=== PATIENT | female | born 1995 | race Caucasian/White ===

== ENCOUNTER 2019-03-03 22:42 | Emergency (ER) | payer OTHER ==
[2019-03-03 22:58] VITALS: BP 137/87; PULSE 77
[2019-03-03] MEDS ORDERED: Ondansetron 4 MG/2 ML SDV IVPUSH ONE (23:24)
[2019-03-03] MEDS ORDERED: HYDROmorphone 1 MG/ML Syringe IVPUSH ONE (23:24)
[2019-03-03] MEDS ORDERED: Sodium Chloride 0.9% 1,000 ML IV SCH (23:30)
--- NOTE | 2019-03-03 23:32 | EDM.PDOC ---
ED HPI GENERAL MEDICAL PROBLEM - General Chief Complaint: Abdominal Pain Stated Complaint: LOWER ABDOMINAL PAIN Time Seen by Provider: 03/03/19 22:55 Source of Information: Reports: Patient, Significant Other (Fianc) History Limitations: Reports: No Limitations - History of Present Illness INITIAL COMMENTS - FREE TEXT/NARRATIVE: Ms. Cueto is a pleasant 23-year-old woman with a past medical history significant for untreated GERD, an ovarian cysts in the past, suspected, although not confirmed, endometriosis, and untreated anxiety/depression, who states that she developed sudden onset left lower quadrant abdominal pain that radiates across to her right lower quadrant, around 22:45 this evening. The pain waxes and wanes. It is made worse if she stands or walks, feels better if she is sitting or lying down. She had nausea and dry heaves earlier. No recent fever. No recent urinary symptoms or gross hematuria. no recent vaginal bleeding. No recent constipation or diarrhea. The patient states that she has had similar symptoms in the past, likely associated with ovarian cysts. The patient did not take any [id number] home remedies prior to coming to the ED. The patient's LMP was more than one month ago. She is not currently on control, and acknowledges that she could be . Her last oral solid food was around 18:30. The patient's PCP is Dr. Shoshana Madrigal. Her Ekg/Ecg Technician is Dr. Kayla Rowan. Her General Surgeon is Dr. Neel Eisenberg. Bilateral Lower Abdomen Pain Score (Numeric/FACES): 7 - Related Data Allergies Allergy/AdvReac Type Severity Reaction Status Date / Time No Known Allergies Allergy Verified 03/03/19 22:58 Home Meds: Home Meds . [No Known Home Meds] 03/03/19 [History] Past Medical History Gastrointestinal History: Reports: Gastritis (untreated) CDC ASSOCIATE History: Reports: Endometriosis (suspected, not confirmed), Other (See Below) (Ovarian cyst) Psychiatric History: Reports: Anxiety (untreated), Depression (untreated) Endocrine/Metabolic History: Reports: Obesity/BMI 30+ - Past Surgical History HEENT Surgical History: Reports: Oral Surgery (wisdom teeth extraction) GI Surgical History: Reports: EGD (01/14/2019) Social & Family History - Tobacco Use Smoking Status *Q: Current Some Day Smoker - Caffeine Use Caffeine Use: Reports: None - Alcohol Use Alcohol Use History: Yes Alcohol Use Frequency: Socially - Recreational Drug Use Recreational Drug Use: Yes Drug Use in Last 12 Months: No Recreational Drug Type: Reports: Cocaine (last snorted 2013), Marijuana/Hashish (last smoked 2011) - Living Situation & Occupation Living situation: Reports: Single, with Significant Other (Palak + his brother ) 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 ED EXAM, RENAL/ - Physical Exam Exam: See Below Exam Limited By: No Limitations General Appearance: Alert, WD/WN, Anxious Eye Exam: Bilateral Eye: EOMI, Normal Inspection Ears: Normal External Exam, Hearing Grossly Normal Nose: Normal Inspection Throat/Mouth: Normal Inspection, Normal Lips, Normal Voice, No Airway Compromise Head: Atraumatic, Normocephalic Neck: Normal Inspection, Full Range of Motion Respiratory/Chest: No Respiratory Distress, Lungs Clear, Normal Breath Sounds, No Accessory Muscle Use Cardiovascular: Normal Peripheral Pulses, Regular Rate, Rhythm, No Edema, No Gallop, No JVD, No Murmur, No Rub GI/Abdominal: Normal Bowel Sounds, Soft, No Organomegaly, No Distention, No Abnormal Bruit, No Mass, Tender (Considerable, to the lower abdomen, primarily suprapubically. Essentially nontender to the upper abdomen.) (Female) Exam: Deferred Rectal (Female) Exam: Deferred Back Exam: Normal Inspection, Full Range of Motion. No: CVA Tenderness (L), CVA Tenderness (R) Extremities: Normal Inspection, Normal Range of Motion, No Pedal Edema, Normal Capillary Refill Neurological: Alert, Oriented, Normal Cognition, No Motor/Sensory Deficits Psychiatric: Normal Affect Skin Exam: Warm, Dry, Intact, Normal Color, No Rash Course - Vital Signs Last Recorded V/S: Last Vital Signs Temp 36.4 C 03/03/19 22:55 Pulse 77 03/03/19 22:55 Resp 20 03/03/19 22:55 BP 137/87 03/03/19 22:55 Pulse Ox 100 03/03/19 22:55 - Orders/Labs/Meds Orders: Active Orders 24 hr Category Date Time Status Transvaginal Non OB [US] Stat Exams 03/03/19 23:24 Ordered Sodium Chloride 0.9% [Normal Saline] 1,000 ml Med 03/03/19 23:30 Active IV ASDIRECTED Medication Orders Sodium Chloride (Normal Saline) 1,000 mls @ 150 mls/hr IV ASDIRECTED DOMENICA Last Admin: 03/03/19 23:36 Dose: 150 mls/hr Labs: Laboratory Tests 03/03/19 03/03/19 03/03/19 Range/Units 23:39 23:39 23:39 WBC 12.35 H (3.98-10.04) K/mm3 RBC 5.43 H (3.98-5.22) M/mm3 Hgb 15.6 D (11.2-15.7) gm/dl Hct 45.7 H (34.1-44.9) % MCV 84.2 (79.4-94.8) fl MCH 28.7 (25.6-32.2) pg MCHC 34.1 (32.2-35.5) g/dl RDW Std Deviation 39.8 (36.4-46.3) fL Plt Count 375 H (182-369) K/mm3 MPV 10.9 (9.4-12.3) fl Neutrophils % (Manual) 57 (40-60) % Band Neutrophils % 0 (0-10) % Lymphocytes % (Manual) 35 (20-40) % Atypical Lymphs % 0 % Monocytes % (Manual) 5 (2-10) % Eosinophils % (Manual) 2 (0.7-5.8) % Basophils % (Manual) 1 (0.1-1.2) Platelet Estimate Adequate Plt Morphology Comment Normal RBC Morph Comment Normal Sodium (136-145) mEq/L Potassium (3.5-5.1) mEq/L Chloride (98-107) mEq/L Carbon Dioxide (21-32) mEq/L Anion Gap (5-15) BUN (7-18) mg/dL Creatinine (0.55-1.02) mg/dL Est Cr Clr Drug Dosing mL/min Estimated GFR (MDRD) (>60) mL/min BUN/Creatinine Ratio (14-18) Glucose (74-106) mg/dL Calcium (8.5-10.1) mg/dL Total Bilirubin (0.2-1.0) mg/dL AST (15-37) U/L ALT (14-59) U/L Alkaline Phosphatase (46-116) U/L Total Protein (6.4-8.2) g/dl Albumin (3.4-5.0) g/dl Globulin gm/dL Albumin/Globulin Ratio (1-2) Urine Color Yellow (Yellow) Urine Appearance Clear (Clear) Urine pH 6.0 (5.0-8.0) Ur Specific [place] 1.025 (1.005-1.030) Urine Protein Negative (Negative) Urine Glucose (UA) Negative (Negative) Urine Ketones Trace H (Negative) Urine Occult Blood Negative (Negative) Urine Nitrite Negative (Negative) Urine Bilirubin 1+ H (Negative) Urine Urobilinogen 1.0 (0.2-1.0) Ur Leukocyte Esterase Negative (Negative) Urine RBC Not seen (0-5) /hpf Urine WBC 0-5 (0-5) /hpf Ur Epithelial Cells 0-5 (0-5) /hpf Urine Bacteria Rare (FEW) /hpf Urine Mucus Not seen (FEW) /hpf Urine HCG, Qual Positive (NEGATIVE) 03/03/19 Range/Units 23:39 WBC (3.98-10.04) K/mm3 RBC (3.98-5.22) M/mm3 Hgb (11.2-15.7) gm/dl Hct (34.1-44.9) % MCV (79.4-94.8) fl MCH (25.6-32.2) pg MCHC (32.2-35.5) g/dl RDW Std Deviation (36.4-46.3) fL Plt Count (182-369) K/mm3 MPV (9.4-12.3) fl Neutrophils % (Manual) (40-60) % Band Neutrophils % (0-10) % Lymphocytes % (Manual) (20-40) % Atypical Lymphs % % Monocytes % (Manual) (2-10) % Eosinophils % (Manual) (0.7-5.8) % Basophils % (Manual) (0.1-1.2) Platelet Estimate Plt Morphology Comment RBC Morph Comment Sodium 139 (136-145) mEq/L Potassium 3.6 (3.5-5.1) mEq/L Chloride 104 (98-107) mEq/L Carbon Dioxide 27 (21-32) mEq/L Anion Gap 11.6 (5-15) BUN 12 (7-18) mg/dL Creatinine 0.9 (0.55-1.02) mg/dL Est Cr Clr Drug Dosing 81.11 mL/min Estimated GFR (MDRD) > 60 (>60) mL/min BUN/Creatinine Ratio 13.3 L (14-18) Glucose 98 (74-106) mg/dL Calcium 9.8 (8.5-10.1) mg/dL Total Bilirubin 0.8 (0.2-1.0) mg/dL AST 22 (15-37) U/L ALT 35 (14-59) U/L Alkaline Phosphatase 87 (46-116) U/L Total Protein 8.3 H (6.4-8.2) g/dl Albumin 4.5 (3.4-5.0) g/dl Globulin 3.8 gm/dL Albumin/Globulin Ratio 1.2 (1-2) Urine Color (Yellow) Urine Appearance (Clear) Urine pH (5.0-8.0) Ur Specific [place] (1.005-1.030) Urine Protein (Negative) Urine Glucose (UA) (Negative) Urine Ketones (Negative) Urine Occult Blood (Negative) Urine Nitrite (Negative) Urine Bilirubin (Negative) Urine Urobilinogen (0.2-1.0) Ur Leukocyte Esterase (Negative) Urine RBC (0-5) /hpf Urine WBC (0-5) /hpf Ur Epithelial Cells (0-5) /hpf Urine Bacteria (FEW) /hpf Urine Mucus (FEW) /hpf Urine HCG, Qual (NEGATIVE) Meds: Medications Generic Name Dose Route Start Last Admin Trade Name Freq PRN Reason Stop Dose Admin Sodium Chloride 1,000 mls @ 150 mls/hr 03/03/19 23:30 03/03/19 23:36 Normal Saline IV 150 mls/hr ASDIRECTED DOMENICA Administration Discontinued Medications Generic Name Dose Route Start Last Admin Trade Name Freq PRN Reason Stop Dose Admin Hydromorphone HCl 1 mg 03/03/19 23:24 03/03/19 23:37 Dilaudid IVPUSH 03/03/19 23:25 1 mg ONETIME ONE Administration Ondansetron HCl 4 mg 03/03/19 23:24 03/03/19 23:36 Zofran IVPUSH 03/03/19 23:25 4 mg ONETIME ONE Administration - Re-Assessments/Exams Free Text/Narrative Re-Assessment/Exam: 03/03/19 23:25 By both history and physical examination, the patient is most likely suffering from a left ruptured ovarian cyst, although this could be an unusual presentation of a UTI. I have ordered some blood work, urinalysis, urine test, and a transvaginal ultrasound to evaluate. In the meantime, the patient will receive IV Dilaudid, IV Zofran, and IV fluid. 03/04/19 00:24 The patient's CBC is remarkable for WBC count slightly elevated at 12.35, but with 0% bandemia. Her hematocrit is slightly elevated at 45.7, and her platelets slightly elevated at 375,000. The remainder of her CBC is unremarkable. Her CMP is unremarkable. Her urinalysis is unremarkable. Her urine test is positive. The transvaginal ultrasound has been performed, however, the report is still pending. 03/04/19 00:55 Doppler ultrasound of the adnexa is read by Susanna as "No sonographic evidence of ovarian torsion." Transvaginal pelvic ultrasound is read by Xinad as: "No acute findings." The body of the report indicates that there is a right ovarian 1.8 cm hemorrhagic cyst, multiple peripheral left ovarian follicles, and a small amount of free pelvic fluid. 03/04/19 01:07 Test results discussed with the patient and her fianc. The patient states that she now has only a small ache. I am concerned, because our workup does not explain the cause of the patient's earlier symptoms. I don't know that we have ruled out an ectopic . Case then discussed with Dr. Rowan at 01:02. Because the patient is hemodynamically stable and is now relatively comfortable, she feels the patient can safely be discharged home. She would like us to add a quantitative hCG to blood already drawn. The patient can call her office in the morning to make an appointment to follow-up. The patient can take Tylenol for discomfort, but no NSAIDs. The patient should start a vitamin with folic acid, which is available [id number]. 03/04/19 01:11 The above plan was discussed with the patient and her fianc. They are both agreeable. Departure - Departure Time of Disposition: 01:11 Disposition: Home, Self-Care 01 Condition: Good Clinical Impression: Lower abdominal pain of unknown etiology, - Discharge Information *PRESCRIPTION DRUG MONITORING PROGRAM REVIEWED*: Not Applicable *COPY OF PRESCRIPTION DRUG MONITORING REPORT IN PATIENT ROBERT: Not Applicable Referrals: Shoshana Hernandez MD [Primary Care Provider] - Kayla Rowan MD [Physician] - Neel Eisenberg MD [Physician] - Forms: ED Department Discharge Additional Instructions: You were seen in the emergency room for sudden onset lower left abdominal pain radiating to your lower right abdomen, along with nausea and dry heaves. Workup in the ER included blood work, a urinalysis, a urine test, and a transvaginal ultrasound of your pelvis. Your entire workup was unremarkable, and does not explain the cause of your pain , however, your urine test was positive. A quantitative hCG ( hormone level) was added to blood already in the lab. You may take [id number] acetaminophen (Tylenol), but you may not take any NSAIDs, such as aspirin, ibuprofen (Advil, Motrin), or naproxen (Aleve). You should purchase an [id number] vitamin that contains folic acid, and take one tablet daily. Contact the office of your Ekg/Ecg Technician, Dr. Kayla Rowan, to make an appointment to be seen. If any other problems, please do not hesitate to return to the ER. - My Orders Last 24 Hours: My Active Orders 03/03/19 23:24 Transvaginal Non OB [US] Stat 03/03/19 23:30 Sodium Chloride 0.9% [Normal Saline] 1,000 ml IV ASDIRECTED - Assessment/Plan Last 24 Hours: My Active Orders 03/03/19 23:24 Transvaginal Non OB [US] Stat 03/03/19 23:30 Sodium Chloride 0.9% [Normal Saline] 1,000 ml IV ASDIRECTED
--- NOTE | 2019-03-04 07:21 | US ---
Pelvic ultrasound: Multiple real-time images were obtained transvaginally. Comparison: Prior CT abdomen and pelvis study of 05/27/18 and pelvic ultrasound of 12/25/15. Uterus is retroverted. Endometrial thickness is normal at 1.2 cm. No myometrial abnormality is seen. Left ovary shows multiple follicles. Right ovary shows a small heterogeneous area measuring 1.7 cm most likely representing collapsing physiologic cyst. No larger cyst or solid abnormality is otherwise seen. Small amount of fluid within the pelvis is seen most likely physiologic. Measurements: Uterus: Length 8.1 cm, AP height 4.1 cm, transverse width 4.4 cm Right ovary: 3.4 x 1.4 x 2.3 cm Left ovary: 2.8 x 1.4 x 2.4 cm Impression: 1. Findings most likely physiologic as described above. 2. Pelvic ultrasound exam is otherwise unremarkable. Diagnostic code #1 I agree with preliminary report from [facility], finalized on 03/04/19, 1:53 AM Central Time
== END 2019-03-04 01:23 | disposition home or self-care (01) ==
LOC: JD.ED 22:42
DX: O26.899 Other specified pregnancy related conditions, unspecified trimester (principal); R10.32 Left lower quadrant pain; O99.330 Smoking (tobacco) complicating pregnancy, unspecified trimester; F17.200 Nicotine dependence, unspecified, uncomplicated
CPT/HCPCS: 36415; 76830; 80053; 81001; 81025; 84702; 85007; 85027; 96361; 96374; 96375; 99284; J1170; J2405; J7040

== ENCOUNTER 2019-11-16 06:47 | Inpatient (IN) | payer OTHER ==
[2019-11-16] MEDS ORDERED: Nalbuphine 10 MG/ML Syringe IVPUSH PRN (07:06)
[2019-11-16] MEDS ORDERED: Sodium Chloride 0.9% 10 ML Syringe FLUSH PRN (07:06)
[2019-11-16] MEDS ORDERED: Acetaminophen 325 MG Tab PO PRN ×2 (07:06→22:20)
[2019-11-16] MEDS ORDERED: Misoprostol 25 MCG (1/4 of 100 MCG) Tab VAG PRN (07:06)
[2019-11-16] MEDS ORDERED: Ondansetron 4 MG/2 ML SDV IVPUSH PRN ×2 (07:06→07:31)
--- NOTE | 2019-11-16 07:09 | PCM.LDHP ---
L&D History of Present Illness - General Date of Service: 11/16/19 Admit Problem/Dx: Patient Status Order with Admit Dx/Problem 11/16/19 07:06 Patient Status [ADT] Routine Admission Diagnosis/Problem Admission Diagnosis/Problem Normal in third trimester Source of Information: Patient History Limitations: Reports: No Limitations - History of Present Illness Introduction:: Patient is a 24 y/o at 40 0/7 wks who presents for IOL. Doing well today. No major concerns or complaints. No contractions - Related Data Allergies/Adverse Reactions: Allergies Allergy/AdvReac Type Severity Reaction Status Date / Time No Known Allergies Allergy Verified 11/16/19 09:06 Home Medications: Home Meds No122/Iron/Folic Acid [ Multi Tablet] 1 each PO DAILY 11/16/19 [History] Past Medical History Gastrointestinal History: Reports: GERD : 1 Para: 0 LMP (Approximate): Psychiatric History: Reports: Anxiety, Depression Endocrine/Metabolic History: Reports: Obesity/BMI 30+ - Past Surgical History HEENT Surgical History: Reports: Oral Surgery (wisdom teeth extraction) GI Surgical History: Reports: EGD (01/14/2019) Social & Family History - Tobacco Use Smoking Status *Q: Never Smoker - Caffeine Use Caffeine Use: Reports: None - Alcohol Use Alcohol Use History: No - Recreational Drug Use Recreational Drug Use: No - Living Situation & Occupation Living situation: Reports: Single, with Significant Other (Fiance + his brother ) 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) H&P Review of Systems - Review of Systems: Review Of Systems: See Below General: Reports: No Symptoms Pulmonary: Reports: No Symptoms Cardiovascular: Reports: No Symptoms Gastrointestinal: Reports: No Symptoms Genitourinary: Reports: No Symptoms Musculoskeletal: Reports: No Symptoms Psychiatric: Reports: No Symptoms Neurological: Reports: No Symptoms L&D Exam - Exam Exam: See Below - OB Specific Contraction Intensity: Irritability Movement: Active Heart Tones: Present Heart Tones per Min: 140 Heart Rate (FHR) Variability: Moderate (6-25 bmp) Presentation: Vertex - Salazar Score Salazar Score Cervix Position: Posterior Salazar Score Consistency: Soft Salazar Score Effacement: 51-70% Salazar Score Dilation: 1-2 cm Salazar Score 's Station: -2 Salazar Score Total: 6 - Exam General: Alert, Oriented, Cooperative Lungs: Clear to Auscultation, Normal Respiratory Effort Cardiovascular: Regular Rate, Regular Rhythm GI/Abdominal Exam: Soft, Non-Tender Genitourinary: Normal external exam Extremities: Normal Inspection Skin: Warm, Dry, Intact - Patient Data Result Diagrams: 11/16/19 07:20 11/16/19 07:20 - Problem List (1) 40 weeks gestation of SNOMED Code(s): 21880245 ICD Code: Z3A.40 - 40 WEEKS GESTATION OF Status: Acute Current Visit: Yes Problem List Initiated/Reviewed/Updated: Yes Orders Last 24hrs: Active Orders 24 hr Category Date Time Status Patient Status [ADT] Routine ADT 11/16/19 07:06 Ordered Communication Order [RC] ASDIRECTED Care 11/16/19 07:06 Ordered Communication Order [RC] ASDIRECTED Care 11/16/19 07:06 Ordered Communication Order [RC] ASDIRECTED Care 11/16/19 07:06 Ordered Communication Order [RC] ASDIRECTED Care 11/16/19 07:06 Ordered Heart Tones [RC] ASDIRECTED Care 11/16/19 07:07 Ordered Monitoring [RC] INTERMITTENT Care 11/16/19 07:06 Ordered Non Stress Test [RC] PER UNIT ROUTINE Care 11/16/19 07:06 Ordered Notify Provider [RC] ASDIRECTED Care 11/16/19 07:06 Ordered Notify Provider [RC] PRN Care 11/16/19 07:06 Ordered Peripheral IV Care [RC] . DIRECTED Care 11/16/19 07:07 Ordered Vaginal Exam [RC] ASDIRECTED Care 11/16/19 07:06 Ordered Vital Signs [RC] ASDIRECTED Care 11/16/19 07:06 Ordered Regular Diet [DIET] Diet 11/16/19 Breakfast Ordered CBC W/O DIFF,HEMOGRAM [HEME] Routine Lab 11/16/19 07:06 Ordered RAPID PLASMA REAGIN,RPR [CHEM] Routine Lab 11/16/19 07:06 Ordered TYPE AND SCREEN [BBK] Routine Lab 11/16/19 07:06 Ordered Acetaminophen [Tylenol] Med 11/16/19 07:06 Ordered 650 mg PO Q4H PRN Lactated Ringers [Ringers, Lactated] 1,000 ml Med 11/16/19 07:15 Ordered IV ASDIRECTED Nalbuphine [Nubain] Med 11/16/19 07:06 Ordered 10 mg IVPUSH Q2H PRN Ondansetron [Zofran] Med 11/16/19 07:06 Ordered 4 mg IVPUSH Q4H PRN Oxytocin/Lactated Ringers [Pitocin in LR 10 Units/1,000 Med 11/16/19 07:15 Ordered ML] 10 unit in 1,000 ml IV .CONTINUOUS Oxytocin/Lactated Ringers [Pitocin in LR 10 Units/1,000 Med 11/16/19 07:15 Ordered ML] 10 unit in 1,000 ml IV TITRATE Sodium Chloride 0.9% [Saline Flush] Med 11/16/19 07:06 Ordered 10 ml FLUSH ASDIRECTED PRN miSOPROStoL [Cytotec] Med 11/16/19 07:06 Ordered 25 mcg VAG Q4H PRN Electronic Heart Tones Ext w TOCO [WOMSER] Oth 11/16/19 07:06 Ordered Routine Electronic Heart Tones Internal [WOMSER] Per Unit Oth 11/16/19 07:06 Ordered Routine Peripheral IV Insertion Adult [OM.PC] Routine Oth 11/16/19 07:06 Ordered Resuscitation Status Routine Resus Stat 11/16/19 07:06 Ordered Assessment/Plan Comment:: * Labs on admission including gestational HTN labs as with some mild range BP's on initial assessment * Cytotec and hartman for IOL. Will switch to pitocin/AROM when able * GBS negative * Pain management per patient preference * Anticipate
[2019-11-16] MEDS ORDERED: Oxytocin/Lactated Ringers 10 UNIT/1,000 ML BAG IV SCH ×2 (07:15)
[2019-11-16] MEDS ORDERED: fentaNYL 100 MCG/2 ML SDV EPIDUR PRN (07:31)
[2019-11-16] MEDS ORDERED: ePHEDrine 50 MG/ML SDV IVPUSH PRN (07:31)
--- NOTE | 2019-11-16 07:35 | PCM.PREANE ---
Preanesthetic Assessment - Procedure Proposed Procedure: epidural - Anesthesia/Transfusion/Family Hx Anesthesia History: Prior Anesthesia Without Reaction Family History of Anesthesia Reaction: No Transfusion History: No Prior Transfusion(s) Intubation History: Unknown - Review of Systems General: No Symptoms Pulmonary: No Symptoms Cardiovascular: No Symptoms, Palpitations () Gastrointestinal: No Symptoms (History of gastritis/GERD), Nausea Neurological: No Symptoms, Dizziness (with off/on) Other: Reports: None, Depression, Anxiety - Physical Assessment NPO Status Date: 11/16/19 NPO Status Time: 06:00 Vital Signs: HR:90 Sat:99% B/P:128/98 Temp:36.1 Resp:16 Height: 1.6 m Weight: 85 kg ASA Class: 2 Mental Status: Alert & Oriented x3 Airway Class: Mallampati = 2 Dentition: Reports: Normal Dentition (tongue piercing noted/requested to be removed.), Caries Thyro-Mental Finger Breadths: 3 Mouth Opening Finger Breadths: 3 ROM/Head Extension: Full Lungs: Clear to Auscultation, Normal Respiratory Effort Cardiovascular: Regular Rate, Regular Rhythm, No Murmurs - Lab Values: Laboratory Last Values WBC 10.73 K/mm3 (3.98-10.04) H 11/16/19 07:20 RBC 5.02 M/mm3 (3.98-5.22) 11/16/19 07:20 Hgb 13.2 gm/dl (11.2-15.7) D 11/16/19 07:20 Hct 41.2 % (34.1-44.9) 11/16/19 07:20 MCV 82.1 fl (79.4-94.8) 11/16/19 07:20 MCH 26.3 pg (25.6-32.2) 11/16/19 07:20 MCHC 32.0 g/dl (32.2-35.5) L 11/16/19 07:20 RDW Std Deviation 43.1 fL (36.4-46.3) 11/16/19 07:20 Plt Count 236 K/mm3 (182-369) D 11/16/19 07:20 MPV 12.4 fl (9.4-12.3) H 11/16/19 07:20 Above labs reviewed and noted and within acceptable ranges to proceed with epidural if desired. 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: Endometriosis (suspected, not confirmed), Other (See Below) (Ovarian cyst) Other OB/BYN History: ruptured ovarian cyst Psychiatric History: Reports: Anxiety (untreated), Depression (untreated) Endocrine/Metabolic History: Reports: Obesity/BMI 30+ - Past Surgical History HEENT Surgical History: Reports: Oral Surgery (wisdom teeth extraction) GI Surgical History: Reports: EGD (01/14/2019) - HOME MEDS Home Medications: Home Meds No122/Iron/Folic Acid [ Multi Tablet] 1 each PO DAILY 11/16/19 [History] - CURRENT (IN HOUSE) MEDS Current Meds: Current Medications Acetaminophen (Tylenol) 650 mg PO Q4H PRN PRN Reason: Pain (Mild 1-3) and fever Ephedrine Sulfate (Ephedrine Sulfate) 5 mg IVPUSH ASDIRECTED PRN PRN Reason: Hypotension Fentanyl (Sublimaze) 100 mcg EPIDUR Q3H PRN PRN Reason: Pain Fentanyl/Bupivacaine HCl (Fentanyl/Bupivacaine/Ns 2 Mcg-0.125% 100 Ml) 100 ml EPIDUR ASDIRECTED DOMENICA Lactated Ringer's (Ringers, Lactated) 1,000 mls @ 40 mls/hr IV ASDIRECTED DOMENICA Oxytocin/Lactated Ringer's (Pitocin In Lr 10 Units/1,000 Ml) 10 unit in 1,000 mls @ 12 mls/hr IV TITRATE DOMENICA; Protocol Oxytocin/Lactated Ringer's (Pitocin In Lr 10 Units/1,000 Ml) 10 unit in 1,000 mls @ 500 mls/hr IV .CONTINUOUS DOMENICA Phenylephrine HCl 1 mg/ Sodium (Chloride) 10.1 mls @ 1 mls/sec IV TITRATE DOMENICA; Protocol Misoprostol (Cytotec) 25 mcg VAG Q4H PRN PRN Reason: cervical ripening Nalbuphine HCl (Nubain) 10 mg IVPUSH Q2H PRN PRN Reason: Pain Ondansetron HCl (Zofran) 4 mg IVPUSH Q4H PRN PRN Reason: Nausea/Vomiting Ondansetron HCl (Zofran) 4 mg IVPUSH ONETIME PRN PRN Reason: Nausea/Vomiting Sodium Chloride (Saline Flush) 10 ml FLUSH ASDIRECTED PRN PRN Reason: Keep Vein Open
[2019-11-16] MEDS ORDERED: Phenylephrine 1 MG in Sodium Chloride 0.9% 10 ML IV SCH (07:45)
[2019-11-16] MEDS: Lactated Ringers 1,000 ML IV SCH ×4 (11:46→18:33)
[2019-11-16] MEDS: Bupivacaine/fentaNYL/NS 100 ML Bag EPIDUR SCH ×2 (12:40→21:23)
--- NOTE | 2019-11-16 21:51 | PCM.DEL ---
L & D Note - General Info Date of Service: 11/16/19 - Delivery Note Labor: Induced by ARM, Induced by Oxytocin Cervical Ripening Method: Balloon Device, Misoprostil Delivery Outcome: Livebirth Infant Delivery Method: Spontaneous Vaginal Delivery-Single Delivery Mode: Vacuum Extraction Presentation: Left Occiput Anterior (SOCORRO) Nuchal Cord: None Anesthesia Type: Epidural Amniotic Fluid Description: Meconium Stained Episiotomy Type: None Laceration: 2nd Degree, Perineal Suture type: Vicryl Suture size: 2-0 Placenta: Intact, Spontaneous Cord: 3 Vessels Estimated Blood Loss: 200 Resuscitation Needed: Yes : Bulb Syringe, Stimulated, Warmed, [place] Used, Warmer Used Delivery Comments (Free Text/Narrative):: The patient was pushing in the dorsal lithotomy position. Sterile vaginal exam complete/complete/+3 station. head in SOCORRO presentation. Maternal pushing effort was good and the pelvis was felt to be adequate for an instrument assisted delivery. Patient had pushed 3 hours and become exhausted. Given this the decision was made to proceed with vacuum assisted vaginal delivery. The mushroom cup was placed without difficulty with care to avoid the vaginal side garsia - applied at 2128. Subsequent vacuum assisted vaginal delivery with pushing over 2 contractions. Total pressure applied 550 mmHg. Total pop offs: 0. Suction was removed following delivery of the head. No nuchal cord. The remainder of the infant delivered without difficulty at 2130. Infant placed on maternal abdomen. Cord clamped and cut. Cord blood obtained. Placenta allowed time to separate and expelled intact. Inspection of the perineum following delivery with 2nd degree laceration which was repaired with a 2-0 Vicryl. Vacuum Extractor Progress Note - Alternative Labor Strategies Considered Alternative Labor Strategies Considered:: Reports: Yes Strategies Considered:: Reports: Contraction Intensity Adequate, Position Changes Used to Facilitate Rotation & Descent, Empty Bladder Indications Considered:: Reports: Yes Indications:: Reports: Shortening of 2nd Stage for Maternal Benefit Time Out:: Reports: Yes - Patient Prepared Patient Prepared:: Reports: Yes Informed Consent:: Reports: Verbal Risks: Reports: Yes Risks Include:: Reports: Laceration, Shoulder Dystocia, Maternal Injury, Other Anesthesia/Analgesia Adequate:: Reports: Yes - Probability of Success High Probability of Success:: Reports: Yes Weight Estimated:: Reports: AGA Patient Diabetic:: Reports: No Pelvis Adequate:: Reports: Yes Position:: SOC[place] Asynclitic:: Reports: No Station:: +3 - Application Time Maximum Application Time & Number of Pop-Offs Predetermined:: Reports: Yes Maximum Pressure Maintained in [place] (cm Hg):: 550 Total Application Time (min): *max=20min: 3 Number of Times Cup Disengaged:: 0 Type of Vacuum Used:: Reports: Cup: Mushroom type Vacuum Extraction: Successful - Exit Strategy Exit strategy available:: Reports: Yes, No and resuscitation teams readily available:: Reports: Yes - General Info Date of Service: 11/16/19 - Patient Data Vitals - Most Recent: Last Vital Signs Temp 36.1 C 11/16/19 07:06 Pulse 98 11/16/19 07:06 Resp 16 11/16/19 07:06 BP 128/98 H 11/16/19 07:06 Pulse Ox 100 11/16/19 07:06 Weight - Most Recent: 85 kg I&O - Last 24 Hours: Intake & Output 11/16/19 11/16/19 11/16/19 06:59 14:59 22:59 Intake Total 2000 1000 Output Total 600 Balance 2000 400 Lab Results Last 24 Hours: Laboratory Results - last 24 hr 11/16/19 11/16/19 11/16/19 Range/Units 07:20 07:20 07:20 WBC 10.73 H (3.98-10.04) K/mm3 RBC 5.02 (3.98-5.22) M/mm3 Hgb 13.2 D (11.2-15.7) gm/dl Hct 41.2 (34.1-44.9) % MCV 82.1 (79.4-94.8) fl MCH 26.3 (25.6-32.2) pg MCHC 32.0 L (32.2-35.5) g/dl RDW Std Deviation 43.1 (36.4-46.3) fL Plt Count 236 D (182-369) K/mm3 MPV 12.4 H (9.4-12.3) fl Creatinine 0.9 (0.55-1.02) mg/dL Est Cr Clr Drug Dosing TNP Estimated GFR (MDRD) > 60 (>60) mL/min AST 23 (15-37) U/L ALT 22 (14-59) U/L Ur Random Creatinine (30.0-125.0) mg/dL U Random Total Protein (0.0-11.8) mg/dL Protein/Creatinin Ratio (0-149) mg/g Blood Type O POSITIVE Gel Antibody Screen Negative 11/16/19 Range/Units 09:20 WBC (3.98-10.04) K/mm3 RBC (3.98-5.22) M/mm3 Hgb (11.2-15.7) gm/dl Hct (34.1-44.9) % MCV (79.4-94.8) fl MCH (25.6-32.2) pg MCHC (32.2-35.5) g/dl RDW Std Deviation (36.4-46.3) fL Plt Count (182-369) K/mm3 MPV (9.4-12.3) fl Creatinine (0.55-1.02) mg/dL Est Cr Clr Drug Dosing Estimated GFR (MDRD) (>60) mL/min AST (15-37) U/L ALT (14-59) U/L Ur Random Creatinine 143.4 H (30.0-125.0) mg/dL U Random Total Protein 40.2 H (0.0-11.8) mg/dL Protein/Creatinin Ratio 280.3 H (0-149) mg/g Blood Type Gel Antibody Screen Med Orders - Current: Current Medications Acetaminophen (Tylenol) 650 mg PO Q4H PRN PRN Reason: Pain (Mild 1-3) and fever Ephedrine Sulfate (Ephedrine Sulfate) 5 mg IVPUSH ASDIRECTED PRN PRN Reason: Hypotension Fentanyl (Sublimaze) 100 mcg EPIDUR Q3H PRN PRN Reason: Pain Last Admin: 11/16/19 12:40 Dose: 100 mcg Fentanyl/Bupivacaine HCl (Fentanyl/Bupivacaine/Ns 2 Mcg-0.125% 100 Ml) 100 ml EPIDUR ASDIRECTED DOMENICA Last Admin: 11/16/19 21:23 Dose: 100 ml Lactated Ringer's (Ringers, Lactated) 1,000 mls @ 40 mls/hr IV ASDIRECTED DOMENICA Last Admin: 11/16/19 18:33 Dose: 40 mls/hr Oxytocin/Lactated Ringer's (Pitocin In Lr 10 Units/1,000 Ml) 10 unit in 1,000 mls @ 12 mls/hr IV TITRATE DOMENICA; Protocol Last Titration: 11/16/19 21:01 Dose: 10 munits/min, 60 mls/hr Oxytocin/Lactated Ringer's (Pitocin In Lr 10 Units/1,000 Ml) 10 unit in 1,000 mls @ 500 mls/hr IV .CONTINUOUS DOMENICA Phenylephrine HCl 1 mg/ Sodium (Chloride) 10.1 mls @ 1 mls/sec IV TITRATE DOMENICA; Protocol Nalbuphine HCl (Nubain) 10 mg IVPUSH Q2H PRN PRN Reason: Pain Ondansetron HCl (Zofran) 4 mg IVPUSH Q4H PRN PRN Reason: Nausea/Vomiting Last Admin: 11/16/19 17:56 Dose: 4 mg Ondansetron HCl (Zofran) 4 mg IVPUSH ONETIME PRN PRN Reason: Nausea/Vomiting Sodium Chloride (Saline Flush) 10 ml FLUSH ASDIRECTED PRN PRN Reason: Keep Vein Open Discontinued Medications Misoprostol (Cytotec) 25 mcg VAG Q4H PRN PRN Reason: cervical ripening Last Admin: 11/16/19 07:42 Dose: 25 mcg - Problem List & Annotations (1) 40 weeks gestation of SNOMED Code(s): 09774421 Code(s): Z3A.40 - 40 WEEKS GESTATION OF Status: Acute Current Visit: Yes (2) Meconium stained amniotic fluid, delivered, current hospitalization SNOMED Code(s): 409130160, 931550657 Code(s): O77.0 - LABOR AND DELIVERY COMPLICATED BY MECONIUM IN AMNIOTIC FLUID Status: Acute Current Visit: Yes (3) Vacuum-assisted vaginal delivery SNOMED Code(s): 63488405646849103 Code(s): Z37.9 - OUTCOME OF DELIVERY, UNSPECIFIED Status: Acute Current Visit: Yes - Problem List Review Problem List Initiated/Reviewed/Updated: Yes - My Orders Last 24 Hours: My Active Orders 11/16/19 07:06 Patient Status [ADT] Routine Communication Order [RC] ASDIRECTED Communication Order [RC] ASDIRECTED Communication Order [RC] ASDIRECTED Notify Provider [RC] ASDIRECTED Notify Provider [RC] PRN Acetaminophen [Tylenol] 650 mg PO Q4H PRN Nalbuphine [Nubain] 10 mg IVPUSH Q2H PRN Ondansetron [Zofran] 4 mg IVPUSH Q4H PRN Sodium Chloride 0.9% [Saline Flush] 10 ml FLUSH ASDIRECTED PRN Electronic Heart Tones Ext w TOCO [WOMSER] Routine Electronic Heart Tones Internal [WOMSER] Per Unit Routine Peripheral IV Insertion Adult [OM.PC] Routine Resuscitation Status Routine 11/16/19 07:07 Peripheral IV Care [RC] Q2HR 11/16/19 07:15 Lactated Ringers [Ringers, Lactated] 1,000 ml IV ASDIRECTED Oxytocin/Lactated Ringers [Pitocin in LR 10 Units/1,000 ML] 10 unit in 1,000 ml IV .CONTINUOUS Oxytocin/Lactated Ringers [Pitocin in LR 10 Units/1,000 ML] 10 unit in 1,000 ml IV TITRATE 11/16/19 07:20 RAPID PLASMA REAGIN,RPR [CHEM] Routine PIH Panel [OM.PC] Stat 11/16/19 09:09 PATIENT RETYPE [BBK] Routine 11/16/19 Breakfast Regular Diet [DIET] - Assessment Assessment:: PPD#0 - Plan Plan:: * Routine cares * Breast feeding * Discharge home in 2 days
[2019-11-16] MEDS ORDERED: Witch Hazel Medicated Pads 40/Jar TOP PRN (22:20)
[2019-11-16] MEDS ORDERED: Benzocaine/Menthol 20%-0.5% Spray 56 GM Canister TOP PRN (22:20)
[2019-11-16] MEDS: Ibuprofen 600 MG Tab PO PRN (23:23)
[2019-11-16] MEDS: Docusate Sodium 100 MG Cap PO PRN (23:23)
[2019-11-17] MEDS ORDERED: Bupivacaine 0.25% 10 ML SDV ONE
--- NOTE | 2019-11-17 07:18 | PCM48HPAN ---
Post Anesthesia Note - EVALUATION WITHIN 48HRS OF ANESTHETIC Vital Signs in Normal Range: Yes Patient Participated in Evaluation: Yes Respiratory Function Stable: Yes Airway Patent: Yes Cardiovascular Function Stable: Yes Hydration Status Stable: Yes Pain Control Satisfactory: Yes Nausea and Vomiting Control Satisfactory: Yes Mental Status Recovered: Yes Vital Signs: Last Vital Signs Temp 36.3 C 11/17/19 04:21 Pulse 60 11/17/19 04:21 Resp 15 11/17/19 04:21 BP 109/78 11/17/19 04:21 Pulse Ox 96 11/17/19 04:21 - COMMENTS/OBSERVATIONS Free Text/Narrative:: no anesthesia complications noted
--- NOTE | 2019-11-17 10:52 | PCM.PNPP ---
- General Info Date of Service: 11/17/19 Functional Status: Reports: Pain Controlled, Tolerating Diet, Ambulating, Urinating - Review of Systems General: Reports: No Symptoms Pulmonary: Reports: No Symptoms Cardiovascular: Reports: No Symptoms Gastrointestinal: Reports: No Symptoms Genitourinary: Reports: Pain (manageable ) Musculoskeletal: Reports: No Symptoms Neurological: Reports: No Symptoms - Patient Data Vital Signs - Most Recent: Last Vital Signs Temp 36.1 C 11/17/19 08:30 Pulse 55 L 11/17/19 08:30 Resp 14 11/17/19 08:30 BP 105/73 11/17/19 08:30 Pulse Ox 96 11/17/19 08:30 Weight - Most Recent: 85 kg I&O - Last 24 Hours: Intake & Output 11/16/19 11/17/19 11/17/19 22:59 06:59 14:59 Intake Total 1000 3000 120 Output Total 600 Balance 400 3000 120 Lab Results - Last 24 Hours: Laboratory Results - last 24 hr 11/16/19 Range/Units 07:20 RPR Non-reactive (NONREACTIVE) Med Orders - Current: Current Medications Acetaminophen (Tylenol) 650 mg PO Q4H PRN PRN Reason: mild pain or fever Benzocaine/Menthol (Dermoplast Pain Relief [place]) 0 gm TOP ASDIRECTED PRN PRN Reason: Perineal Comfort Measure Last Admin: 11/16/19 23:22 Dose: 1 can Docusate Sodium (Colace) 100 mg PO BID PRN PRN Reason: Constipation Last Admin: 11/16/19 23:23 Dose: 100 mg Ibuprofen (Motrin) 600 mg PO Q6H PRN PRN Reason: Mild pain or fever Last Admin: 11/16/19 23:23 Dose: 600 mg Witch Bibi (Tucks) 1 pad TOP ASDIRECTED PRN PRN Reason: Perineal Comfort Measure Last Admin: 11/16/19 23:23 Dose: 1 canister Discontinued Medications Acetaminophen (Tylenol) 650 mg PO Q4H PRN PRN Reason: Pain (Mild 1-3) and fever Bupivacaine HCl (Sensorcaine-Mpf 0.25%) 10 ml .ROUTE .STK-MED ONE Stop: 11/17/19 00:01 Ephedrine Sulfate (Ephedrine Sulfate) 5 mg IVPUSH ASDIRECTED PRN PRN Reason: Hypotension Fentanyl (Sublimaze) 100 mcg EPIDUR Q3H PRN PRN Reason: Pain Last Admin: 11/16/19 12:40 Dose: 100 mcg Fentanyl/Bupivacaine HCl (Fentanyl/Bupivacaine/Ns 2 Mcg-0.125% 100 Ml) 100 ml EPIDUR ASDIRECTED DOMENICA Last Admin: 11/16/19 21:23 Dose: 100 ml Lactated Ringer's (Ringers, Lactated) 1,000 mls @ 40 mls/hr IV ASDIRECTED DOMENICA Last Admin: 11/16/19 18:33 Dose: 40 mls/hr Oxytocin/Lactated Ringer's (Pitocin In Lr 10 Units/1,000 Ml) 10 unit in 1,000 mls @ 12 mls/hr IV TITRATE DOMENICA; Protocol Last Titration: 11/16/19 21:01 Dose: 10 munits/min, 60 mls/hr Oxytocin/Lactated Ringer's (Pitocin In Lr 10 Units/1,000 Ml) 10 unit in 1,000 mls @ 500 mls/hr IV .CONTINUOUS DOMENICA Last Admin: 11/16/19 22:09 Dose: 500 mls/hr Phenylephrine HCl 1 mg/ Sodium (Chloride) 10.1 mls @ 1 mls/sec IV TITRATE DOMENICA; Protocol Misoprostol (Cytotec) 25 mcg VAG Q4H PRN PRN Reason: cervical ripening Last Admin: 11/16/19 07:42 Dose: 25 mcg Nalbuphine HCl (Nubain) 10 mg IVPUSH Q2H PRN PRN Reason: Pain Ondansetron HCl (Zofran) 4 mg IVPUSH Q4H PRN PRN Reason: Nausea/Vomiting Last Admin: 11/16/19 17:56 Dose: 4 mg Ondansetron HCl (Zofran) 4 mg IVPUSH ONETIME PRN PRN Reason: Nausea/Vomiting Sodium Chloride (Saline Flush) 10 ml FLUSH ASDIRECTED PRN PRN Reason: Keep Vein Open - Infant Interaction Infant Disposition, : in Room with Family Infant Interaction: Holding Infant Infant Feeding: Attempted ; Nursed Fair/Poor Support Person: Significant Other - Recovery Exam Fundal Tone: Firm Fundal Level: 1 Fingerbreadths Above Umbilicus Fundal Placement: Right Lochia Amount: Small Lochia Color: Rubra/Red Perineum Description: Other (see below) Other Perinuem Description: 2nd degree laceration with repair Episiotomy/Laceration: Approximated Bladder Status: Voiding Urinary Elimination: Voided - Exam General: Alert, Oriented, Cooperative GI/Abdominal Exam: Soft, Non-Tender Extremities: Normal Inspection Skin: Warm, Dry, Intact - Problem List & Annotations (1) 40 weeks gestation of SNOMED Code(s): 09269291 Code(s): Z3A.40 - 40 WEEKS GESTATION OF Status: Acute Current Visit: Yes (2) Meconium stained amniotic fluid, delivered, current hospitalization SNOMED Code(s): 607022708, 615095262 Code(s): O77.0 - LABOR AND DELIVERY COMPLICATED BY MECONIUM IN AMNIOTIC FLUID Status: Acute Current Visit: Yes (3) Vacuum-assisted vaginal delivery SNOMED Code(s): 75568712162545108 Code(s): Z37.9 - OUTCOME OF DELIVERY, UNSPECIFIED Status: Acute Current Visit: Yes - Problem List Review Problem List Initiated/Reviewed/Updated: Yes - My Orders Last 24 Hours: My Active Orders 11/16/19 22:20 Activity as Tolerated [RC] PER UNIT ROUTINE Vital Signs [RC] 03,09,15,21 Acetaminophen [Tylenol] 650 mg PO Q4H PRN Benzocaine/Menthol [Dermoplast Pain Relief [place]] See Dose Instructions TOP ASDIRECTED PRN Docusate Sodium [Colace] 100 mg PO BID PRN Ibuprofen [Motrin] 600 mg PO Q6H PRN witch Bibi [Tucks] 1 pad TOP ASDIRECTED PRN Assess Lochia [WOMSER] Per Unit Routine Assess Uterine Involution [WOMSER] Per Unit Routine Breast Pump [WOMSER] Per Unit Routine Heat Therapy [OM.PC] PRN Ice Therapy [OM.PC] Per Unit Routine Perineal Care [OM.PC] Per Unit Routine Peripheral IV Discontinue [OM.PC] Routine Sitz Bath [OM.PC] Per Unit Routine 11/17/19 22:20 Heat Therapy [OM.PC] PRN - Assessment Assessment:: PPD#1 - Plan Plan:: * Routine cares * Breast feeding * Discharge home tomorrow
[2019-11-17] MEDS: Docusate Sodium 100 MG Cap PO PRN (20:34)
[2019-11-17] MEDS: Ibuprofen 600 MG Tab PO PRN (20:35)
--- NOTE | 2019-11-18 07:03 | PCM.DCSUM1 ---
Discharge Summary - Discharge Data Discharge Date: 11/18/19 Discharge Disposition: Home, Self-Care 01 Condition: Good - Referral to Home Health Primary Care Physician: Kayla Rowan MD - Discharge Diagnosis/Problem(s) (1) 40 weeks gestation of SNOMED Code(s): 13647756 ICD Code: Z3A.40 - 40 WEEKS GESTATION OF Status: Acute (2) Meconium stained amniotic fluid, delivered, current hospitalization SNOMED Code(s): 930149703, 155039450 ICD Code: O77.0 - LABOR AND DELIVERY COMPLICATED BY MECONIUM IN AMNIOTIC FLUID Status: Acute (3) Vacuum-assisted vaginal delivery SNOMED Code(s): 36100970045891262 ICD Code: Z37.9 - OUTCOME OF DELIVERY, UNSPECIFIED Status: Acute - Patient Summary/Data Complications: None Consults: None Recommended Follow-up Testing/Procedures: Follow up in 3 weeks for check Hospital Course: 24 y/o at 40 0/7 wks who presented for IOL. Done with hartman bulb/cytotec and also pitocin. Progressed well to complete dilation. After pushing ~3hr did become exhausted. Requested VAVD. This was done. See delivery note. did well and was discharged home on PPD#2 - Patient Instructions Diet: Regular Diet as Tolerated Activity: As Tolerated Activity, Other: Pelvic rest for 6 weeks Driving: May Drive Today Showering/Bathing: May Shower Showering/Bathing, Other: May bathe Notify Provider of: Fever, Increased Pain, Swelling and Redness, Drainage, Nausea and/or Vomiting - Discharge Plan *PRESCRIPTION DRUG MONITORING PROGRAM REVIEWED*: No *COPY OF PRESCRIPTION DRUG MONITORING REPORT IN PATIENT ROBERT: No Home Medications: Home Meds No122/Iron/Folic Acid [ Multi Tablet] 1 each PO DAILY 11/16/19 [History] Docusate Sodium [Colace] 100 mg PO BID PRN cap 11/17/19 [Rx] Ibuprofen [Motrin] 600 mg PO Q6H PRN tablet 11/17/19 [Rx] Patient Handouts: Breast Pumping Tips, and Self-Care, and Returning to Work, Care After Vaginal Delivery Referrals: Kayla Rowan MD [Primary Care Provider] - (3 weeks for check ) - Discharge Summary/Plan Comment DC Time >30 min.: No - Patient Data Vitals - Most Recent: Last Vital Signs Temp 36.5 C 11/18/19 02:56 Pulse 61 11/18/19 02:56 Resp 14 11/18/19 02:56 BP 118/79 11/18/19 02:56 Pulse Ox 97 11/18/19 02:56 Weight - Most Recent: 85 kg Med Orders - Current: Current Medications Acetaminophen (Tylenol) 650 mg PO Q4H PRN PRN Reason: mild pain or fever Benzocaine/Menthol (Dermoplast Pain Relief [place]) 0 gm TOP ASDIRECTED PRN PRN Reason: Perineal Comfort Measure Last Admin: 11/16/19 23:22 Dose: 1 can Docusate Sodium (Colace) 100 mg PO BID PRN PRN Reason: Constipation Last Admin: 11/17/19 20:34 Dose: 100 mg Ibuprofen (Motrin) 600 mg PO Q6H PRN PRN Reason: Mild pain or fever Last Admin: 11/17/19 20:35 Dose: 600 mg Witch Lara (Tucks) 1 pad TOP ASDIRECTED PRN PRN Reason: Perineal Comfort Measure Last Admin: 11/16/19 23:23 Dose: 1 canister Discontinued Medications Acetaminophen (Tylenol) 650 mg PO Q4H PRN PRN Reason: Pain (Mild 1-3) and fever Bupivacaine HCl (Sensorcaine-Mpf 0.25%) 10 ml .ROUTE .STK-MED ONE Stop: 11/17/19 00:01 Ephedrine Sulfate (Ephedrine Sulfate) 5 mg IVPUSH ASDIRECTED PRN PRN Reason: Hypotension Fentanyl (Sublimaze) 100 mcg EPIDUR Q3H PRN PRN Reason: Pain Last Admin: 11/16/19 12:40 Dose: 100 mcg Fentanyl/Bupivacaine HCl (Fentanyl/Bupivacaine/Ns 2 Mcg-0.125% 100 Ml) 100 ml EPIDUR ASDIRECTED DOMENICA Last Admin: 11/16/19 21:23 Dose: 100 ml Lactated Ringer's (Ringers, Lactated) 1,000 mls @ 40 mls/hr IV ASDIRECTED DOMENICA Last Admin: 11/16/19 18:33 Dose: 40 mls/hr Oxytocin/Lactated Ringer's (Pitocin In Lr 10 Units/1,000 Ml) 10 unit in 1,000 mls @ 12 mls/hr IV TITRATE DOMENICA; Protocol Last Titration: 11/16/19 21:01 Dose: 10 munits/min, 60 mls/hr Oxytocin/Lactated Ringer's (Pitocin In Lr 10 Units/1,000 Ml) 10 unit in 1,000 mls @ 500 mls/hr IV .CONTINUOUS DOMENICA Last Admin: 11/16/19 22:09 Dose: 500 mls/hr Phenylephrine HCl 1 mg/ Sodium (Chloride) 10.1 mls @ 1 mls/sec IV TITRATE DOMENICA; Protocol Misoprostol (Cytotec) 25 mcg VAG Q4H PRN PRN Reason: cervical ripening Last Admin: 11/16/19 07:42 Dose: 25 mcg Nalbuphine HCl (Nubain) 10 mg IVPUSH Q2H PRN PRN Reason: Pain Ondansetron HCl (Zofran) 4 mg IVPUSH Q4H PRN PRN Reason: Nausea/Vomiting Last Admin: 11/16/19 17:56 Dose: 4 mg Ondansetron HCl (Zofran) 4 mg IVPUSH ONETIME PRN PRN Reason: Nausea/Vomiting Sodium Chloride (Saline Flush) 10 ml FLUSH ASDIRECTED PRN PRN Reason: Keep Vein Open
--- NOTE | 2019-11-18 07:03 | PCM.PNPP ---
- General Info Date of Service: 11/18/19 Functional Status: Reports: Pain Controlled, Tolerating Diet, Ambulating, Urinating - Review of Systems General: Reports: No Symptoms Pulmonary: Reports: No Symptoms Cardiovascular: Reports: No Symptoms Gastrointestinal: Reports: No Symptoms Genitourinary: Reports: No Symptoms Musculoskeletal: Reports: No Symptoms Neurological: Reports: No Symptoms - General Info Date of Service: 11/18/19 - Patient Data Vital Signs - Most Recent: Last Vital Signs Temp 36.5 C 11/18/19 02:56 Pulse 61 11/18/19 02:56 Resp 14 11/18/19 02:56 BP 118/79 11/18/19 02:56 Pulse Ox 97 11/18/19 02:56 Weight - Most Recent: 85 kg Med Orders - Current: Current Medications Acetaminophen (Tylenol) 650 mg PO Q4H PRN PRN Reason: mild pain or fever Benzocaine/Menthol (Dermoplast Pain Relief [place]) 0 gm TOP ASDIRECTED PRN PRN Reason: Perineal Comfort Measure Last Admin: 11/16/19 23:22 Dose: 1 can Docusate Sodium (Colace) 100 mg PO BID PRN PRN Reason: Constipation Last Admin: 11/17/19 20:34 Dose: 100 mg Ibuprofen (Motrin) 600 mg PO Q6H PRN PRN Reason: Mild pain or fever Last Admin: 11/17/19 20:35 Dose: 600 mg Witch Lara (Tucks) 1 pad TOP ASDIRECTED PRN PRN Reason: Perineal Comfort Measure Last Admin: 11/16/19 23:23 Dose: 1 canister Discontinued Medications Acetaminophen (Tylenol) 650 mg PO Q4H PRN PRN Reason: Pain (Mild 1-3) and fever Bupivacaine HCl (Sensorcaine-Mpf 0.25%) 10 ml .ROUTE .STK-MED ONE Stop: 11/17/19 00:01 Ephedrine Sulfate (Ephedrine Sulfate) 5 mg IVPUSH ASDIRECTED PRN PRN Reason: Hypotension Fentanyl (Sublimaze) 100 mcg EPIDUR Q3H PRN PRN Reason: Pain Last Admin: 11/16/19 12:40 Dose: 100 mcg Fentanyl/Bupivacaine HCl (Fentanyl/Bupivacaine/Ns 2 Mcg-0.125% 100 Ml) 100 ml EPIDUR ASDIRECTED DOMENICA Last Admin: 11/16/19 21:23 Dose: 100 ml Lactated Ringer's (Ringers, Lactated) 1,000 mls @ 40 mls/hr IV ASDIRECTED DOMENICA Last Admin: 11/16/19 18:33 Dose: 40 mls/hr Oxytocin/Lactated Ringer's (Pitocin In Lr 10 Units/1,000 Ml) 10 unit in 1,000 mls @ 12 mls/hr IV TITRATE DOMENICA; Protocol Last Titration: 11/16/19 21:01 Dose: 10 munits/min, 60 mls/hr Oxytocin/Lactated Ringer's (Pitocin In Lr 10 Units/1,000 Ml) 10 unit in 1,000 mls @ 500 mls/hr IV .CONTINUOUS DOMENICA Last Admin: 11/16/19 22:09 Dose: 500 mls/hr Phenylephrine HCl 1 mg/ Sodium (Chloride) 10.1 mls @ 1 mls/sec IV TITRATE DOMENICA; Protocol Misoprostol (Cytotec) 25 mcg VAG Q4H PRN PRN Reason: cervical ripening Last Admin: 11/16/19 07:42 Dose: 25 mcg Nalbuphine HCl (Nubain) 10 mg IVPUSH Q2H PRN PRN Reason: Pain Ondansetron HCl (Zofran) 4 mg IVPUSH Q4H PRN PRN Reason: Nausea/Vomiting Last Admin: 11/16/19 17:56 Dose: 4 mg Ondansetron HCl (Zofran) 4 mg IVPUSH ONETIME PRN PRN Reason: Nausea/Vomiting Sodium Chloride (Saline Flush) 10 ml FLUSH ASDIRECTED PRN PRN Reason: Keep Vein Open - Infant Interaction Infant Disposition, : in Room with Family Infant Interaction: Holding Infant Feeding: Attempted ; Nursed Fair/Poor, Difficulty with Latch -on Support Person: Significant Other - Recovery Exam Fundal Tone: Firm Fundal Level: 1 Fingerbreadths Above Umbilicus Fundal Placement: Midline Lochia Amount: Small Lochia Color: Rubra/Red Perineum Description: Other (see below) Other Perinuem Description: 2nd degree laceration with repair Episiotomy/Laceration: Approximated Bladder Status: Voiding Urinary Elimination: Voided - Exam General: Alert, Oriented, Cooperative GI/Abdominal Exam: Soft, Non-Tender Extremities: Normal Inspection Skin: Warm, Dry Psy/Mental Status: Other (Tearful today ) - Problem List & Annotations (1) 40 weeks gestation of SNOMED Code(s): 61274970 Code(s): Z3A.40 - 40 WEEKS GESTATION OF Status: Acute (2) Meconium stained amniotic fluid, delivered, current hospitalization SNOMED Code(s): 394113909, 398583275 Code(s): O77.0 - LABOR AND DELIVERY COMPLICATED BY MECONIUM IN AMNIOTIC FLUID Status: Acute (3) Vacuum-assisted vaginal delivery SNOMED Code(s): 53291440247844615 Code(s): Z37.9 - OUTCOME OF DELIVERY, UNSPECIFIED Status: Acute - Problem List Review Problem List Initiated/Reviewed/Updated: Yes - My Orders Last 24 Hours: My Active Orders 11/17/19 22:20 Heat Therapy [OM.PC] PRN 11/18/19 07:03 Ready for Discharge [RC] PER UNIT ROUTINE - Assessment Assessment:: PPD#2 - Plan Plan:: * Routine cares * Breast feeding * Discharge pt today, however, baby will be staying for bilirubin therapy. Will continue to work on breast feeding
[2019-11-18 11:08] VITALS: BP 118/81; PULSE 67
== END 2019-11-18 12:55 | disposition home or self-care (01) | DRG 807 ==
LOC: JD.OB 06:47 → OBSVTOIN 21:31 → JD.OB 21:32
PROVIDERS: ADMIT Obstetrics & Gynecology; ATTEND Obstetrics & Gynecology
PROC: 10D07Z6 Extraction of Products of Conception, Vacuum, Via Natural or Artificial Opening (ICD-10-PCS; principal; 2019-11-16)
PROC: 0KQM0ZZ Repair Perineum Muscle, Open Approach (ICD-10-PCS; 2019-11-16)
PROC: 10907ZC Drainage of Amniotic Fluid, Therapeutic from Products of Conception, Via Natural or Artificial Opening (ICD-10-PCS; 2019-11-16)
PROC: 3E033VJ Introduction of Other Hormone into Peripheral Vein, Percutaneous Approach (ICD-10-PCS; 2019-11-16)
PROC: 3E0R3BZ Introduction of Anesthetic Agent into Spinal Canal, Percutaneous Approach (ICD-10-PCS; 2019-11-16)
PROC: 00HU33Z Insertion of Infusion Device into Spinal Canal, Percutaneous Approach (ICD-10-PCS; 2019-11-16)
DX: O48.0 Post-term pregnancy (principal); Z37.0 Single live birth; Z3A.40 40 weeks gestation of pregnancy; O77.0 Labor and delivery complicated by meconium in amniotic fluid; O99.214 Obesity complicating childbirth; E66.9 Obesity, unspecified; O99.62 Diseases of the digestive system complicating childbirth; K21.9 Gastro-esophageal reflux disease without esophagitis; O70.1 Second degree perineal laceration during delivery
CPT/HCPCS: 36415; 51701; 51702; 59025; 59409; 82565; 82570; 84156; 84450; 84460; 85027; 86592; 86850; 86900; 86901; A9270-GY; J2405; J2590; J3010; J3490; J7120

== ENCOUNTER 2020-03-31 22:59 | Emergency (ER) | payer OTHER ==
[2020-03-31 23:08] VITALS: BP 134/8; PULSE 61
[2020-03-31] MEDS ORDERED: HYDROmorphone 1 MG/ML Syringe IVPUSH STA (23:32)
[2020-03-31] MEDS ORDERED: Ondansetron 4 MG/2 ML SDV IVPUSH ONE (23:32)
--- NOTE | 2020-03-31 23:39 | EDM.PDOC ---
ED HPI GENERAL MEDICAL PROBLEM - General Chief Complaint: Abdominal Pain Stated Complaint: LOWER ABDOMINAL PAIN Time Seen by Provider: 03/31/20 23:12 Source of Information: Reports: Patient History Limitations: Reports: No Limitations - History of Present Illness INITIAL COMMENTS - FREE TEXT/NARRATIVE: Ms. Cueto is a very pleasant 24-year-old woman who now presents to the ED with lower abdominal pain that began around 22:40 this evening. She indicates her suprapubic region, and states that the pain waxes and wanes, going from a crampy ache to a stabbing shooting pain. It does not radiate. She has not identified any modifiers. She has had nausea, but no vomiting. No recent constipation, diarrhea, or urinary symptoms. She did not take any [id number] or home remedies prior to coming to the ED. The patient states that she has had similar symptoms many times in the past. Usually the pain is left or right of center, and due to ovarian cyst, although she did have midline pain once before and was told that she was . The patient states that she delivered about 4.5 months ago, and that she is breast- feeding. She states that she had some spotting about 1 month ago, otherwise, her LMP was prior to her . She is not using any form of control, however, therefore she states that it is possible that she could be . Here in the ED, the patient is found to be hemodynamically stable, afebrile, saturating 100% on room air. Prior to this evening, the patient denies having a recent fever, chills, sore throat, ear pain, nasal or sinus congestion, cough, dyspnea, chest pain, palpitations, nausea, vomiting, constipation, diarrhea, abdominal pain, urinary symptoms, recent weight gain or weight loss, recent bloody bowel movements or black bowel movements, recent joint aches, headaches, or rashes. The patient's PCP is Dr. Shoshana Madrigal. Her Mill Beam Fitter is Dr. Kayla Rowan. Her Surgeon is Dr. Neel Eisenberg. Lower Abdominal Pain Score (Numeric/FACES): 7 - Related Data Allergies Allergy/AdvReac Type Severity Reaction Status Date / Time No Known Allergies Allergy Verified 03/31/20 23:13 Home Meds: Home Meds No122/Iron/Folic Acid [ Multi Tablet] 1 each PO DAILY 11/16/19 [History] Docusate Sodium [Colace] 100 mg PO BID PRN cap 11/17/19 [Rx] Ibuprofen [Motrin] 600 mg PO Q6H PRN tablet 11/17/19 [Rx] Acetaminophen/HYDROcodone [[place] 325-5 MG] 1 - 2 tab PO Q6H PRN #24 tablet 04/01/20 [Rx] Ondansetron [Zofran ODT] 1 tab PO Q8H PRN #10 tab.dis 04/01/20 [Rx] Past Medical History Gastrointestinal History: Reports: GERD (untreated) [employer] HEL[employer] History: Reports: Endometriosis (suspected, not confirmed), Other (See Below) (Ovarian cysts) : 1 Para: 1 Psychiatric History: Reports: Anxiety (untreated), Depression (untreated) - Past Surgical History HEENT Surgical History: Reports: Oral Surgery (dental extractions) GI Surgical History: Reports: EGD (01/14/2019) Social & Family History - Tobacco Use Tobacco Use Status *Q: Former Tobacco User Years of Tobacco use: 1 Packs/Tins Daily: 0.2 Month/Year Tobacco Last Used: Quit 2015 - Caffeine Use Caffeine Use: Reports: Coffee, Energy Drinks, Soda, Tea - Alcohol Use Alcohol Use History: Yes Alcohol Use Frequency: Socially - Recreational Drug Use Recreational Drug Use: Yes Drug Use in Last 12 Months: No Recreational Drug Type: Reports: Marijuana/Hashish (last smoked 2015) - Living Situation & Occupation Living situation: Reports: Single, with Significant Other (Boyfriend), with Family ( child) 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 ED EXAM, GI/ABD - Physical Exam Exam: See Below Exam Limited By: No Limitations General Appearance: Alert, WD/WN, Mild Distress (Appears uncomfortable) Eyes: Bilateral: Normal Appearance, EOMI Ears: Normal External Exam, Hearing Grossly Normal Nose: Normal Inspection Throat/Mouth: Normal Inspection, Normal Lips, Normal Voice, No Airway Compromise Head: Atraumatic, Normocephalic Neck: Normal Inspection, Full Range of Motion Respiratory/Chest: No Respiratory Distress, Lungs Clear, Normal Breath Sounds, No Accessory Muscle Use Cardiovascular: Normal Peripheral Pulses, Regular Rate, Rhythm, No Edema, No Gallop, No JVD, No Murmur, No Rub GI/Abdominal Exam: Normal Bowel Sounds, Soft, No Organomegaly, No Distention, No Abnormal Bruit, No Mass, Tender (Primarily suprapubic, although some tenderness to the left and right lower quadrants. Minimal tenderness to the upper abdomen.) Back Exam: Normal Inspection, Full Range of Motion. No: CVA Tenderness (L), CVA Tenderness (R) Extremities: Normal Inspection, Normal Range of Motion, No Pedal Edema, Normal Capillary Refill Neurological: Alert, Oriented, Normal Cognition, No Motor/Sensory Deficits Psychiatric: Normal Affect Skin Exam: Warm, Dry, Intact, Normal Color, No Rash Course - Vital Signs Last Recorded V/S: Last Vital Signs Temp 36.6 C 03/31/20 23:07 Pulse 61 03/31/20 23:07 Resp 22 H 03/31/20 23:07 BP 134/8 L 03/31/20 23:07 Pulse Ox 100 03/31/20 23:07 - Orders/Labs/Meds Orders: Active Orders 24 hr Category Date Time Status Abdomen Pelvis w Cont [CT] Stat Exams 04/01/20 00:01 Taken Labs: Laboratory Tests 03/31/20 03/31/20 03/31/20 Range/Units 23:45 23:45 23:45 WBC 9.70 (3.98-10.04) K/mm3 RBC 5.18 (3.98-5.22) M/mm3 Hgb 14.5 (11.2-15.7) gm/dl Hct 44.5 (34.1-44.9) % MCV 85.9 D (79.4-94.8) fl MCH 28.0 (25.6-32.2) pg MCHC 32.6 (32.2-35.5) g/dl RDW Std Deviation 42.1 (36.4-46.3) fL Plt Count 338 D (182-369) K/mm3 MPV 10.8 (9.4-12.3) fl Neutrophils % (Manual) 50 (40-60) % Band Neutrophils % 1 (0-10) % Lymphocytes % (Manual) 29 (20-40) % Atypical Lymphs % 10 % Monocytes % (Manual) 7 (2-10) % Eosinophils % (Manual) 2 (0.7-5.8) % Basophils % (Manual) 1 (0.1-1.2) Platelet Estimate Adequate Plt Morphology Comment See note RBC Morph Comment Normal Sodium 143 (136-145) mEq/L Potassium 3.3 L (3.5-5.1) mEq/L Chloride 105 (98-107) mEq/L Carbon Dioxide 28 (21-32) mEq/L Anion Gap 13.3 (5-15) BUN 16 (7-18) mg/dL Creatinine 0.9 (0.55-1.02) mg/dL Est Cr Clr Drug Dosing 80.42 mL/min Estimated GFR (MDRD) > 60 (>60) mL/min BUN/Creatinine Ratio 17.8 (14-18) Glucose 107 H (74-106) mg/dL Calcium 9.5 (8.5-10.1) mg/dL Total Bilirubin 0.9 (0.2-1.0) mg/dL AST 16 (15-37) U/L ALT 31 (14-59) U/L Alkaline Phosphatase 114 (46-116) U/L Total Protein 7.6 (6.4-8.2) g/dl Albumin 3.9 (3.4-5.0) g/dl Globulin 3.7 gm/dL Albumin/Globulin Ratio 1.1 (1-2) HCG, Quant mIU/mL Urine Color Yellow (Yellow) Urine Appearance Clear (Clear) Urine pH 6.0 (5.0-8.0) Ur Specific [place] 1.025 (1.005-1.030) Urine Protein Negative (Negative) Urine Glucose (UA) Negative (Negative) Urine Ketones Negative (Negative) Urine Occult Blood Negative (Negative) Urine Nitrite Negative (Negative) Urine Bilirubin Negative (Negative) Urine Urobilinogen 0.2 (0.2-1.0) Ur Leukocyte Esterase Negative (Negative) Urine RBC 0-5 (0-5) /hpf Urine WBC 0-5 (0-5) /hpf Ur Squamous Epith Cells 0-5 (0-5) /hpf Urine Bacteria Few (FEW) /hpf Urine Mucus Moderate H (FEW) /hpf 03/31/20 Range/Units 23:45 WBC (3.98-10.04) K/mm3 RBC (3.98-5.22) M/mm3 Hgb (11.2-15.7) gm/dl Hct (34.1-44.9) % MCV (79.4-94.8) fl MCH (25.6-32.2) pg MCHC (32.2-35.5) g/dl RDW Std Deviation (36.4-46.3) fL Plt Count (182-369) K/mm3 MPV (9.4-12.3) fl Neutrophils % (Manual) (40-60) % Band Neutrophils % (0-10) % Lymphocytes % (Manual) (20-40) % Atypical Lymphs % % Monocytes % (Manual) (2-10) % Eosinophils % (Manual) (0.7-5.8) % Basophils % (Manual) (0.1-1.2) Platelet Estimate Plt Morphology Comment RBC Morph Comment Sodium (136-145) mEq/L Potassium (3.5-5.1) mEq/L Chloride (98-107) mEq/L Carbon Dioxide (21-32) mEq/L Anion Gap (5-15) BUN (7-18) mg/dL Creatinine (0.55-1.02) mg/dL Est Cr Clr Drug Dosing mL/min Estimated GFR (MDRD) (>60) mL/min BUN/Creatinine Ratio (14-18) Glucose (74-106) mg/dL Calcium (8.5-10.1) mg/dL Total Bilirubin (0.2-1.0) mg/dL AST (15-37) U/L ALT (14-59) U/L Alkaline Phosphatase (46-116) U/L Total Protein (6.4-8.2) g/dl Albumin (3.4-5.0) g/dl Globulin gm/dL Albumin/Globulin Ratio (1-2) HCG, Quant < 1.0 mIU/mL Urine Color (Yellow) Urine Appearance (Clear) Urine pH (5.0-8.0) Ur Specific [place] (1.005-1.030) Urine Protein (Negative) Urine Glucose (UA) (Negative) Urine Ketones (Negative) Urine Occult Blood (Negative) Urine Nitrite (Negative) Urine Bilirubin (Negative) Urine Urobilinogen (0.2-1.0) Ur Leukocyte Esterase (Negative) Urine RBC (0-5) /hpf Urine WBC (0-5) /hpf Ur Squamous Epith Cells (0-5) /hpf Urine Bacteria (FEW) /hpf Urine Mucus (FEW) /hpf Meds: Medications Discontinued Medications Generic Name Dose Route Start Last Admin Trade Name Brandon PRN Reason Stop Dose Admin Diatrizoate Meglum/Diatrizoate Sod 120 ml 04/01/20 01:22 04/01/20 01:22 Gastrografin 37% PO 04/01/20 01:23 120 ml ONETIME ONE Administration Hydromorphone HCl 1 mg 03/31/20 23:32 03/31/20 23:47 Dilaudid IVPUSH 03/31/20 23:33 1 mg ONETIME STA Administration Sodium Chloride 1,000 mls @ 150 mls/hr 03/31/20 23:45 03/31/20 23:46 Normal Saline IV 150 mls/hr ASDIRECTED DOMENICA Administration Iopamidol 100 ml 04/01/20 01:22 04/01/20 01:22 Isovue-300 (61%) IVPUSH 04/01/20 01:23 100 ml ONETIME ONE Administration Ondansetron HCl 4 mg 03/31/20 23:32 03/31/20 23:46 Zofran IVPUSH 03/31/20 23:33 4 mg ONETIME ONE Administration Sodium Chloride 10 ml 04/01/20 01:22 04/01/20 01:23 Saline Flush FLUSH 04/01/20 01:23 10 ml ONETIME ONE Administration - Re-Assessments/Exams Free Text/Narrative Re-Assessment/Exam: 03/31/20 23:33 As above, the patient developed suprapubic pain with nausea less than an hour ago. She is tender primarily in her suprapubic region, although has some tenderness to her lower abdomen and minimal tenderness elsewhere. No CVA tenderness. I have ordered a work-up that includes blood work, a urinalysis, and a CT of her abdomen and pelvis with oral and IV contrast. In the meantime, the patient will be given IV Dilaudid, IV Zofran, and IV fluid. If the patient turns out to be , we will discuss that prior to pursuing the CT scan. T he patient is aware that the Dilaudid will be make its way to her breast milk, but she wants to proceed anyway. 04/01/20 01:05 The patient's CBC is unremarkable. Her CMP is remarkable for a potassium mildly depressed at 3.3, and a blood glucose slightly elevated at 107, with the remainder of her CMP being unremarkable. Her quantitative hCG is undetectably low. Her urinalysis is unremarkable. 04/01/20 02:29 CT of the abdomen and pelvis with oral and IV contrast is read by [facility] as "Left colonic changes as above. Consider infectious or inflammatory colitis as potential etiology. Correlate clinically." The body of the report reads: Stomach and bowel: No small bowel dilation. Circumferential wall thickening with mucosal enhancement involving the descending colon and rectosigmoid . 04/01/20 02:34 As the patient does not have a fever or bloody bowel movements, infectious colitis is unlikely, and given her young age, ischemic colitis is highly unlikely. The distribution of colitis seen on the CT scan is concerning for ulcerative colitis. I will therefore discharge her home with a prescription for some [place] and Zofran, and then have her follow-up with Dr. Eisenberg for a colonoscopy; he previously performed an EGD on the patient. Departure - Departure Time of Disposition: 02:35 Disposition: Home, Self-Care 01 Condition: Good Clinical Impression: Colitis - Discharge Information *PRESCRIPTION DRUG MONITORING PROGRAM REVIEWED*: Not Applicable *COPY OF PRESCRIPTION DRUG MONITORING REPORT IN PATIENT ROBERT: Not Applicable Prescriptions: Acetaminophen/HYDROcodone [[place] 325-5 MG] 1 - 2 tab PO Q6H PRN #24 tablet PRN Reason: Pain (Severe 7-10) Ondansetron [Zofran ODT] 1 tab PO Q8H PRN #10 tab.dis PRN Reason: Nausea/Vomiting Instructions: Abdominal Pain, Adult, [id number] Referrals: Shoshana Hernandez MD [Primary Care Provider] - Kayla Rowan MD [Physician] - Neel Eisenberg MD [Physician] - Forms: ED Department Discharge Additional Instructions: You were seen in the emergency room after developing lower midline abdominal pain with nausea. Work-up in the ER included blood work, a urinalysis, and a CT of your abdomen and pelvis with oral and IV contrast. Your blood work and urinalysis were unremarkable. You do not have an elevated white blood cell count. You are not anemic. No significant electrolyte abnormalities were found. You are not . You do not have a urinary tract infection. The CT of your abdomen and pelvis found inflammation of your distal colon, concerning for ulcerative colitis. You have been provided with prescriptions for the opioid pain reliever [place] and the antinausea medicine Zofran. You may take 1 to 2 tablets of [place] up to every 6 hours, as needed for pain. If you take [place], do not drive or operate heavy machinery for 12 hours a fterwards. [place] may cause constipation, so consider taking a stool softener. Additionally, be aware that [place] will find its way into your breastmilk, which could adversely affect your baby. You may dissolve 1 tablet of Zofran on your tongue up to every 8 hours, as needed for nausea/vomiting. We recommend that you eat a bland diet and stay adequately hydrated. We recommend that you follow-up with your Surgeon, Dr. Neel Eisenberg, at the next available appointment, to arrange for an outpatient colonoscopy. If any other problems, please do not hesitate to return to the ER. Sepsis Event Note (ED) - Evaluation Sepsis Screening Result: No Definite Risk - Focused Exam Vital Signs: Vital Signs Temp Pulse Resp BP Pulse Ox 03/31/20 23:07 36.6 C 61 22 H 134/8 L 100 - My Orders Last 24 Hours: My Active Orders 04/01/20 00:01 Abdomen Pelvis w Cont [CT] Stat - Assessment/Plan Last 24 Hours: My Active Orders 04/01/20 00:01 Abdomen Pelvis w Cont [CT] Stat
[2020-03-31] MEDS ORDERED: Sodium Chloride 0.9% 1,000 ML IV SCH (23:45)
[2020-04-01] MEDS ORDERED: Diatrizoate Meglumine/Diatrizoate Sodium 37% 120 ML Bottle PO ONE (01:22)
[2020-04-01] MEDS ORDERED: Iopamidol 612 MG/ML 100 ML Bottle IVPUSH ONE (01:22)
[2020-04-01] MEDS ORDERED: Sodium Chloride 0.9% 10 ML Syringe FLUSH ONE (01:22)
== END 2020-04-01 02:50 | disposition home or self-care (01) ==
LOC: JD.ED 22:59
DX: K52.9 Noninfective gastroenteritis and colitis, unspecified (principal); Z87.891 Personal history of nicotine dependence
CPT/HCPCS: 36415; 74177; 80053; 81001; 84702; 85007; 85027; 96374; 96375; 99284; J1170; J2405; J7030; Q9963; Q9967

== ENCOUNTER 2021-10-07 15:31 | Emergency (ER) | payer OTHER ==
[2021-10-07 15:43] VITALS: BP 136/86; PULSE 90
[2021-10-07] MEDS ORDERED: Ondansetron 4 MG/2 ML SDV IVPUSH ONE (16:13)
[2021-10-07] MEDS ORDERED: Acetaminophen 325 MG Tab PO ONE (16:13)
[2021-10-07] MEDS ORDERED: Sodium Chloride 0.9% 1,000 ML IV ONE (16:14)
[2021-10-07] MEDS: Sodium Chloride 0.9% 10 ML Syringe FLUSH PRN ×2 (16:43→19:24)
[2021-10-07] MEDS ORDERED: Iopamidol 612 MG/ML 100 ML Bottle IVPUSH ONE (19:16)
== END 2021-10-07 21:41 | disposition home or self-care (01) ==
LOC: JD.ED 15:31
DX: O99.891 Other specified diseases and conditions complicating pregnancy (principal); R10.31 Right lower quadrant pain; N83.11 Corpus luteum cyst of right ovary; E66.9 Obesity, unspecified; Z68.29 Body mass index [BMI] 29.0-29.9, adult; Z79.899 Other long term (current) drug therapy; Z3A.01 Less than 8 weeks gestation of pregnancy
CPT/HCPCS: 36415; 74177; 76705; 76817; 80053; 81001; 81025; 84702; 85025; 86140; 96374; 99284; A9270; J2405; J3490; J7030; Q9967

== ENCOUNTER 2022-05-23 20:20 | Inpatient (IN) | payer OTHER ==
[2022-05-23] MEDS ORDERED: Acetaminophen 325 MG Tab PO PRN (20:51)
[2022-05-23] MEDS ORDERED: Ondansetron 4 MG/2 ML SDV IVPUSH PRN (20:51)
[2022-05-23] MEDS ORDERED: Sodium Chloride 0.9% 10 ML Syringe FLUSH PRN (20:51)
[2022-05-23] MEDS ORDERED: Calcium Carbonate 500 MG Tab.Chew PO PRN (20:51)
[2022-05-23] MEDS ORDERED: Nalbuphine 10 MG/0.5 ML Syringe IVPUSH PRN (20:51)
[2022-05-23] MEDS ORDERED: Oxytocin/Lactated Ringers 10 UNIT/1,000 ML BAG IV SCH ×2 (21:00)
[2022-05-23] MEDS ORDERED: Sodium Chloride 0.9% 10 ML Syringe FLUSH SCH (21:00)
[2022-05-23] MEDS: Lactated Ringers 1,000 ML IV SCH ×2 (21:33→22:17)
[2022-05-23] MEDS ORDERED: ePHEDrine 50 MG/ML SDV IVPUSH PRN (21:49)
[2022-05-23] MEDS ORDERED: Bupivacaine/fentaNYL/NS 100 ML Bag EPIDUR PRN (21:49)
[2022-05-23] MEDS ORDERED: fentaNYL 100 MCG/2 ML SDV EPIDUR PRN (21:49)
[2022-05-23] MEDS ORDERED: diphenhydrAMINE 50 MG/ML SDV IVPUSH PRN (21:49)
[2022-05-23] MEDS ORDERED: fentaNYL 100 MCG/2 ML SDV ONE (21:59)
[2022-05-24] MEDS ORDERED: Lidocaine 1% 10 ML MDV ONE
[2022-05-24] MEDS ORDERED: Oxytocin/Lactated Ringers 10 UNIT/1,000 ML BAG IV SCH (02:00)
[2022-05-24] MEDS ORDERED: Acetaminophen 325 MG Tab PO PRN (05:12)
[2022-05-24] MEDS ORDERED: Docusate Sodium 100 MG Cap PO PRN (05:12)
[2022-05-24] MEDS ORDERED: Benzocaine/Menthol 20%-0.5% Spray 78 GM Cannister TOP PRN (05:12)
[2022-05-24] MEDS ORDERED: Witch Hazel Medicated Pads 40/Jar TOP PRN (05:12)
[2022-05-24] MEDS: Ibuprofen 600 MG Tab PO PRN ×2 (09:36→15:33)
[2022-05-25] MEDS: Ibuprofen 600 MG Tab PO PRN (00:57)
[2022-05-25 11:09] VITALS: BP 106/67; PULSE 83
== END 2022-05-25 12:12 | disposition home or self-care (01) | DRG 807 ==
LOC: JD.OBCHECK 20:20 → JD.OB 20:23 → JD.OBCHECK 23:36 → JD.OB 23:37 → OBSVTOIN 05-24 04:04 → JD.OB 05-24 04:05
PROVIDERS: ADMIT Obstetrics & Gynecology; ATTEND Obstetrics & Gynecology
PROC: 10E0XZZ Delivery of Products of Conception, External Approach (ICD-10-PCS; principal; 2022-05-24)
PROC: 0KQM0ZZ Repair Perineum Muscle, Open Approach (ICD-10-PCS; 2022-05-24)
PROC: 3E0R3BZ Introduction of Anesthetic Agent into Spinal Canal, Percutaneous Approach (ICD-10-PCS; 2022-05-24)
PROC: 00HU33Z Insertion of Infusion Device into Spinal Canal, Percutaneous Approach (ICD-10-PCS; 2022-05-24)
DX: O99.344 Other mental disorders complicating childbirth (principal); Z37.0 Single live birth; O99.62 Diseases of the digestive system complicating childbirth; O99.214 Obesity complicating childbirth; O70.1 Second degree perineal laceration during delivery; Z3A.39 39 weeks gestation of pregnancy; O69.1XX0 Labor and delivery complicated by cord around neck, with compression, not applicable or unspecified; K21.9 Gastro-esophageal reflux disease without esophagitis; F41.9 Anxiety disorder, unspecified; F32.A Depression, unspecified
CPT/HCPCS: 01967; 36415; 51702; 59025; 59409; 85025; 86592; 86850; 86900; 86901; A9270-GY; J2590; J3010; J7120

== ENCOUNTER 2023-07-27 21:10 | Emergency (ER) | payer BC ==
[2023-07-27 21:20] VITALS: PULSE 86
[2023-07-27 21:36] LABS: BASOPHILS ABSOLUTE AUTO 0.1 K/mm3 (0.0-0.2); BASOPHILS PERCENT AUTO 0.7 % (0.0-1.0); EOSINOPHILS ABSOLUTE AUTO 0.1 K/mm3 (0.0-0.4); EOSINOPHILS PERCENT AUTO 1.1 % (0.0-6.0); HEMATOCRIT 41.5 % (37.0-47.0); HEMOGLOBIN 13.9 gm/dl (12.0-16.0); IMMATURE GRAN ABSOLUTE AUTO 0.03 K/mm3 (0.00-0.05); IMMATURE GRAN PERCENT AUTO 0.3 % (0.0-0.4); LYMPHOCYTES ABSOLUTE AUTO 2.3 K/mm3 (1.0-4.8); LYMPHOCYTES PERCENT AUTO 23.2 % (24.0-44.0); MEAN CORPUSCULAR HEMOGLOBIN 29.1 pg (28.0-32.0); MEAN CORPUSCULAR HGB CONC 33.5 g/dl (32.0-36.0); MEAN CORPUSCULAR VOLUME 86.8 fl (83.0-99.0); MEAN PLATELET VOLUME 9.6 fl (9.4-12.3); MONOCYTES ABSOLUTE AUTO 0.8 K/mm3 (0.0-0.8); MONOCYTES PERCENT AUTO 8.1 % (0.0-8.0); NEUTROPHILS ABSOLUTE AUTO 6.5 K/mm3 (1.8-7.7); NEUTROPHILS PERCENT AUTO 66.6 % (41.0-71.0); PLATELET COUNT,PLT 339 K/mm3 (150-400); RED BLOOD CELL COUNT 4.78 M/mm3 (4.10-5.30); WHITE BLOOD CELL COUNT,WBC 9.77 K/mm3 (3.9-11.3)
[2023-07-27] MEDS: Ketorolac 30 MG/ML SDV IM ONE (21:38)
[2023-07-27 21:51] LABS: APPEARANCE,URINE CLEAR (Clear); BILIRUBIN,URINE NEGATIVE (Negative); COLOR,URINE YELLOW (Yellow); GLUCOSE,URINE NEGATIVE (Negative); KETONES,URINE NEGATIVE (Negative); LEUKOCYTE ESTERASE,URINE TRACE (Negative); NITRITE,URINE NEGATIVE (Negative); OCCULT BLOOD,URINE NEGATIVE (Negative); PROTEIN,URINE NEGATIVE (Negative); UROBILINOGEN,URINE 0.2 (0.2-1.0)
[2023-07-27 22:01] LABS: A/G RATIO 0.8 (1-2); ALBUMIN 3.3 g/dl (3.4-5.0); ANION GAP 12.9 (5-15); BILIRUBIN TOTAL 0.3 mg/dL (0.2-1.0); C-REACTIVE PROTEIN 0.7 mg/dL (<1.0); CALCIUM 8.5 mg/dL (8.5-10.1); EST CRCL DRUG DOSING (CG) 69.9 mL/min; POTASSIUM,K 3.9 mEq/L (3.5-5.1); PROTEIN TOTAL,TP 7.3 g/dl (6.4-8.2)
[2023-07-27 22:06] LABS: BACTERIA,URINE MODERATE /hpf (FEW); MUCUS,URINE FEW /hpf (FEW); RBC,URINE 0-5 /hpf (0-5)
[2023-07-28 00:14] VITALS: BP 122/81
== END 2023-07-27 23:00 | disposition home or self-care (01) ==
LOC: JD.ED 21:10
DX: R10.32 Left lower quadrant pain (principal); E66.9 Obesity, unspecified; Z68.32 Body mass index [BMI] 32.0-32.9, adult
CPT/HCPCS: 36415; 76830; 80053; 81001; 84703; 85025; 86140; 87086; 96372; 99284; J1885

== ENCOUNTER 2024-06-09 16:47 | Emergency (ER) | payer BC ==
[2024-06-09] MEDS ORDERED: Ondansetron 4 MG/2 ML SDV IVPUSH ONE (17:20)
[2024-06-09] MEDS ORDERED: Sodium Chloride 0.9% 10 ML Syringe FLUSH ONE (17:23)
[2024-06-09] MEDS ORDERED: Iopamidol 612 MG/ML 100 ML Bottle IVPUSH ONE (17:23)
[2024-06-09] MEDS: Magnesium Hydroxide 400 MG/5 ML Susp 30 ML Cup PO ONE (18:10)
[2024-06-09] MEDS: Acetaminophen/oxyCODONE 325-5 MG Tab PO ONE (18:10)
[2024-06-09] MEDS: Sodium Chloride 0.9% 1,000 ML IV ONE (18:11)
[2024-06-09 18:55] VITALS: BP 116/79; PULSE 87
== END 2024-06-09 18:15 | disposition home or self-care (01) ==
LOC: JD.ED 16:47
DX: K64.4 Residual hemorrhoidal skin tags (principal); K60.2 Anal fissure, unspecified; K21.9 Gastro-esophageal reflux disease without esophagitis; E66.9 Obesity, unspecified; Z79.899 Other long term (current) drug therapy
CPT/HCPCS: 99283; A9270

== ENCOUNTER 2024-08-21 21:50 | Emergency (ER) | payer BC ==
[2024-08-21 22:09] VITALS: BP 127/85; PULSE 86
== END 2024-08-21 23:45 | disposition home or self-care (01) ==
LOC: JD.ED 21:50
DX: K64.4 Residual hemorrhoidal skin tags (principal); K60.2 Anal fissure, unspecified; K59.00 Constipation, unspecified; K21.9 Gastro-esophageal reflux disease without esophagitis; E66.9 Obesity, unspecified; Z79.899 Other long term (current) drug therapy; Z68.31 Body mass index [BMI] 31.0-31.9, adult
CPT/HCPCS: 74018; 74018-26; 99283; 99284

== ENCOUNTER 2024-12-19 10:31 | Emergency (ER) | payer BC ==
[2024-12-19] MEDS: Ondansetron 4 MG/2 ML SDV IVPUSH ONE (11:17)
[2024-12-19] MEDS: Ketorolac 30 MG/ML SDV IVPUSH ONE (11:17)
[2024-12-19 11:49] LABS: BASOPHILS ABSOLUTE AUTO 0.1 K/mm3 (0.0-0.2); BASOPHILS PERCENT AUTO 1.0 % (0.0-1.0); EOSINOPHILS ABSOLUTE AUTO 0.2 K/mm3 (0.0-0.4); EOSINOPHILS PERCENT AUTO 2.7 % (0.0-6.0); IMMATURE GRAN ABSOLUTE AUTO 0.04 K/mm3 (0.00-0.05); IMMATURE GRAN PERCENT AUTO 0.5 % (0.0-0.4); LYMPHOCYTES ABSOLUTE AUTO 2.3 K/mm3 (1.0-4.8); LYMPHOCYTES PERCENT AUTO 29.2 % (24.0-44.0); MEAN PLATELET VOLUME 10.4 fl (9.4-12.3); MONOCYTES ABSOLUTE AUTO 0.6 K/mm3 (0.0-0.8); MONOCYTES PERCENT AUTO 7.3 % (0.0-8.0); NEUTROPHILS ABSOLUTE AUTO 4.7 K/mm3 (1.8-7.7); NEUTROPHILS PERCENT AUTO 59.3 % (41.0-71.0); NRBC ABSOLUTE 0.00 (0.00-0.02); NRBC PERCENT 0.0 % (0.0-0.2); PLATELET COUNT,PLT 390 K/mm3 (150-400); RED BLOOD CELL COUNT 5.18 M/mm3 (4.10-5.30); WHITE BLOOD CELL COUNT,WBC 7.91 K/mm3 (3.9-11.3)
[2024-12-19 11:59] LABS: A/G RATIO 0.9 (1-2); ALANINE AMINOTRANSFERASE,ALT 27.0 U/L (14-59); ASPARTATE AMNIOTRANSFERASE,AST 17.0 U/L (15-37); BILIRUBIN TOTAL 0.3 mg/dL (0.2-1.0); BLOOD UREA NITROGEN,BUN 11.0 mg/dL (7-18); CARBON DIOXIDE,CO2 28.0 mEq/L (21-32); CHLORIDE,CL 104.0 mEq/L (98-107); CREATINE KINASE,CK 60.0 U/L (26-192); CREATININE 0.8 mg/dL (0.55-1.02); EST CRCL DRUG DOSING (CG) 86.6 mL/min; ESTIMATED GFR 103.0 mL/min (>60); GLUCOSE RANDOM 104.0 mg/dL (70-99); POTASSIUM,K 4.0 mEq/L (3.5-5.1); PROTEIN TOTAL,TP 7.4 g/dl (6.4-8.2); SODIUM,NA 137.0 mEq/L (136-145)
[2024-12-19 13:50] LABS: APPEARANCE,URINE CLEAR (Clear); GLUCOSE,URINE NEGATIVE (Negative); OCCULT BLOOD,URINE NEGATIVE (Negative)
[2024-12-19 13:57] LABS: BUPRENORPHINE SCREEN,URINE NEGATIVE (CUTOFF=10); METHADONE SCREEN, URINE NEGATIVE (CUTOFF=200); METHAMPHETAMINES SCREEN, URINE NEGATIVE (CUTOFF=500); OXYCODONE SCREEN,URINE NEGATIVE (CUT0FF=100); THC SCREEN,URINE 20 NG/ML NEGATIVE (CUTOFF=50)
[2024-12-19 14:00] LABS: AMPHETAMINES SCREEN, URINE PRESUMPTIVE POSITIVE (CUTOFF=500)
[2024-12-19 14:04] VITALS: BP 113/78; PULSE 87
== END 2024-12-19 13:57 | disposition home or self-care (01) ==
LOC: JD.ED 10:31
DX: G43.909 Migraine, unspecified, not intractable, without status migrainosus (principal); K21.9 Gastro-esophageal reflux disease without esophagitis; E86.9 Volume depletion, unspecified; Z79.899 Other long term (current) drug therapy; M62.838 Other muscle spasm
CPT/HCPCS: 36415; 70450; 80053; 80306; 81003; 82550; 83735; 85025; 96361; 96374; 96375; 99284; A9270; J1885; J2405; J7030